=== PATIENT | female | born 1990 ===

== ENCOUNTER → 2017-10-09 | Day surgery (SDC) | payer MEDICAID ==
[~2017-10-09] MED LIST: Acetaminophen/oxyCODONE 325-5 MG Tab PO ONE; Albuterol 0.083% 2.5 MG/3 ML Neb Soln NEB ONE; Dexamethasone 4 MG/ML SDV ONE; HYDROmorphone 0.5 MG/0.5 ML Syringe IVPUSH PRN; HYDROmorphone 1 MG/ML Syringe ONE; Ketorolac 30 MG/ML SDV ONE; Lactated Ringers 1,000 ML IV SCH; Lactated Ringers 1,000 ML ONE; Lidocaine 1% 4 ML ONE; Lidocaine 1%/Sod Bicarbonate in NS 8.4% 1 ML Syringe IV PRN; Meperidine PF 50 MG/ML Syringe IVPUSH PRN; Midazolam 1 MG/ML 2 ML SDV ONE; Ondansetron 4 MG/2 ML SDV IVPUSH PRN; Ondansetron 4 MG/2 ML SDV ONE; Propofol 200 MG/20 ML SDV ONE; Rocuronium 50 MG/5 ML Vial ONE; Sodium Chloride 0.9% 10 ML Syringe FLUSH PRN; Sodium Chloride 0.9% 50 ML SDV ONE; ceFAZolin 1 GM Vial ONE; ePHEDrine 50 MG/ML SDV ONE; fentaNYL 100 MCG/2 ML SDV IVPUSH PRN; fentaNYL 250 MCG/5 ML SDV ONE
--- NOTE | 2017-10-09 09:18 | PCM.PREANE ---
Preanesthetic Assessment - Anesthesia/Transfusion/Family Hx Anesthesia History: Prior Anesthesia Without Reaction Type of Anesthesia Reaction: Other (see below) (slow to wake up) Family History of Anesthesia Reaction: No Transfusion History: Prior Transfusion Without Reaction Intubation History: Unknown - Review of Systems General: No Symptoms Pulmonary: No Symptoms (History of Asthma/ Smoker: 1 ppd times 10 years./last used inhaler 2 weeks ago.) Cardiovascular: No Symptoms Gastrointestinal: Diarrhea (for past year due to inability to adjust to water.) Neurological: Headache (Migraine headache present 05/02.), Numbness (all four extremities on occasion with patient stating she is doctoring on that next.) Other: Reports: Easy Bruising, Depression, Anxiety - Physical Assessment NPO Status Date: 10/08/17 NPO Status Time: 23:59 Pulse: 69 O2 Sat by Pulse Oximetry: 100 Respiratory Rate: 16 Blood Pressure: 110/79 Temperature: 36.1 C Height: 1.57 m Weight: 70 kg ASA Class: 2 Mental Status: Alert & Oriented x3 Airway Class: Mallampati = 2 Dentition: Reports: Dentures (upper), Broken Tooth/Teeth (fragile left bottom), Caries Thyro-Mental Finger Breadths: 3 Mouth Opening Finger Breadths: 3 ROM/Head Extension: Full Lungs: Clear to Auscultation, Normal Respiratory Effort Cardiovascular: Regular Rate, Regular Rhythm, No Murmurs - Allergies Allergies/Adverse Reactions: Allergies Allergy/AdvReac Type Severity Reaction Status Date / Time adhesive Allergy Rash Verified 10/08/17 15:20 onion Allergy Cannot Verified 10/08/17 15:20 Remember - Anesthesia Plan Pre-Op Medication Ordered: None - Acknowledgements Anesthesia Type Planned: General Anesthesia Pt an Appropriate Candidate for the Planned Anesthesia: Yes Alternatives and Risks of Anesthesia Discussed w Pt/Guardian: Yes Pt/Guardian Understands and Agrees with Anesthesia Plan: Yes PreAnesthesia Questionnaire HEENT History: Reports: Other (See Below) Other HEENT History: Wears dentures Cardiovascular History: Reports: High Cholesterol Respiratory History: Reports: Asthma Gastrointestinal History: Reports: None ROLLER CHECKER History: Reports: , Spontaneous , Other (See Below) Other OB/BYN History: abnormal uterine bleeding, HGSIL Musculoskeletal History: Reports: None Neurological History: Reports: Migraines Psychiatric History: Reports: Anxiety, Depression Endocrine/Metabolic History: Reports: None Hematologic History: Reports: Anemia Immunologic History: Reports: None Oncologic (Cancer) History: Reports: None Dermatologic History: Reports: Other (See Below) Other Dermatologic History: cold sores - Past Surgical History Head Surgeries/Procedures: Reports: None Cardiovascular Surgical History: Reports: None Respiratory Surgical History: Reports: None GI Surgical History: Reports: Cholecystectomy Female Surgical History: Reports: Oophorectomy, Tubal Ligation Endocrine Surgical History: Reports: None Neurological Surgical History: Reports: None Musculoskeletal Surgical History: Reports: None Oncologic Surgical History: Reports: None - SUBSTANCE USE Smoking Status *Q: Current Every Day Smoker Recreational Drug Use History: No - HOME MEDS Home Medications: Home Meds Acetaminophen [Tylenol] 650 g PO Q4H PRN 10/08/17 [History] Albuterol [IJD: Albuterol HFA] 2 puff INH Q4H PRN 10/08/17 [History] Cholecalciferol (Vitamin D3) [Vitamin D3] 1,000 unit PO DAILY 10/08/17 [History] Ezetimibe [Zetia] 10 mg PO DAILY 10/08/17 [History] Naproxen 500 mg PO Q6H PRN 10/08/17 [History] valACYclovir HCl [Valtrex] 500 mg PO BID 10/08/17 [History] - CURRENT (IN HOUSE) MEDS Current Meds: Current Medications Lactated Ringer's (Ringers, Lactated) 1,000 mls @ 125 mls/hr IV ASDIRECTED MELLY Stop: 10/09/17 18:00 Lidocaine/Sodium Bicarbonate (Buffered Lidocaine 1% In Ns 8.4%) 0.25 ml IV ONETIME PRN PRN Reason: Prior to IV Start Stop: 10/09/17 18:00 Sodium Chloride (Saline Flush) 10 ml FLUSH ASDIRECTED PRN PRN Reason: Keep Vein Open Stop: 10/09/17 18:00 Discontinued Medications Cefazolin Sodium (Ancef) Confirm Administered Dose 2 gm .ROUTE .STK-MED ONE Stop: 10/09/17 07:29 Dexamethasone (Dexamethasone) Confirm Administered Dose 8 mg .ROUTE .STK-MED ONE Stop: 10/09/17 07:29 Fentanyl (Sublimaze) Confirm Administered Dose 250 mcg .ROUTE .STK-MED ONE Stop: 10/09/17 07:30 Hydromorphone HCl (Dilaudid) Confirm Administered Dose 1 mg .ROUTE .STK-MED ONE Stop: 10/09/17 07:29 Lidocaine HCl (Xylocaine-Mpf 1%) Confirm Administered Dose 4 mls @ as directed .ROUTE .STK-MED ONE Stop: 10/09/17 07:29 Lactated Ringer's (Ringers, Lactated) Confirm Administered Dose 1,000 mls @ as directed .ROUTE .STK-MED ONE Stop: 10/09/17 07:29 Ketorolac Tromethamine (Toradol) Confirm Administered Dose 30 mg .ROUTE .STK- MED ONE Stop: 10/09/17 07:29 Midazolam HCl (Versed 1 Mg/Ml) Confirm Administered Dose 2 mg .ROUTE .STK-MED ONE Stop: 10/09/17 07:30 Ondansetron HCl (Zofran) Confirm Administered Dose 4 mg .ROUTE .STK-MED ONE Stop: 10/09/17 07:29 Propofol (Diprivan 20 Ml) Confirm Administered Dose 400 mg .ROUTE .STK-MED ONE Stop: 10/09/17 07:29 Rocuronium Talco (Zemuron) Confirm Administered Dose 50 mg .ROUTE .STK-MED ONE Stop: 10/09/17 07:29
--- NOTE | 2017-10-09 09:36 | PCM.HPR ---
H & P Addendum review - H & P Addendum Review Date of Original H & P: 10/02/17 Date Reviewed: 10/09/17 Time Reviewed: 09:10 Patient was Examined: Changes (Patient with uncontrollable migraines due to unable to take regular pain medications due to surgical procedure. Otherwise medical history unchanged. Denies any fevers or chills. Denies any difficulty breathing.) Please Note any Changes: Physical Exam. General: No acute distress, alert and oriented. Lungs: Mild expiratory wheezing in left lower lobe, clear in remainder of exam. Heart: Regular Rate and rhythm. Pelvic: Deferred
[2017-10-09] MEDS: Bupivacaine 0.5% 30 ML SDV ONE ×2 (11:20→11:30)
[2017-10-09] MEDS: Lidocaine 1% with EPINEPHrine 1:100,000 20 ML MDV ONE ×2 (12:00→12:12)
--- NOTE | 2017-10-09 12:57 | PCM.OPNOTE ---
- General Post-Op/Procedure Note Date of Surgery/Procedure: 10/09/17 Operative Procedure(s): Laparoscopic-assisted vaginal hysterectomy with right salpingectomy Findings: Overall normal-appearing uterus and right fallopian tube except for small surgically absent portion of the isthmus. Right ovary normal in appearance. No significant adhesions. No evidence of significant cause of pelvic pain. Left fallopian tube and ovary surgically absent. Pre Op Diagnosis: Polymenorrhea, menorrhagia, pelvic pain in female, dysmenorrhea, DIANA 3 on cervical biopsy Post-Op Diagnosis: Same Anesthesia Technique: General ET Tube Primary Surgeon: Eugenio Foley Secondary Surgeon: Clayton Delaney Anesthesia Provider: Arelis Doan Reason Short Story Writer Was Necessary: Asst. was necessary for laparoscopically trained second provider and assist with the vaginal hysterectomy for patient safety. Pathology: Uterus, cervix and right fallopian tube Fluid Replacement, Intraop: 1,800 Output, Urine Amount: 105 EBL in mLs: 200 Complications: None Condition: Good Free Text/Narrative:: Duration: 100 minutes PROCEDURE IN DETAIL: The patient was seen in the preoperative holding area and counseled on the risks, benefits and alternatives and indications of the procedure and she desired to proceed with a laparoscopic-assisted vaginal hysterectomy. The patient's consents were reviewed. The patient was taken back to the OR and given general anesthesia with an endotracheal tube which was placed without difficulty. She was placed in dorsal supine position using Yellofin stirrups. She was prepped and draped in normal sterile fashion. A Gómez catheter was placed without difficulty. She had a Abril uterine manipulator placed with a 6 mm attachment tip. Attention was then turned to her umbilicus, which was injected with 1% Marcaine with epinephrine infraumbilically. A 5 mm incision was made with the scalpel. A Veress needle was then inserted through the incision and gas was turned on, with an opening pressure of 2 mmHg. Pneumoperitoneum was continued until 15 mmHg pressure. A 5 mm trocar was then inserted under direct visualization with a laparoscope. Attention was then turned to the patient's left lower quadrant where an avascular space approximately fci between the ASIS and the umbilicus was identified. Local anesthetic was injected and a 5 mm incision was made with a scalpel. A 5 mm trocar was then inserted under direct visualization of the laparoscope. Attention was then turned to the right lower quadrant, where again an avascular portion of the abdominal wall was identified approximately fci between the ASIS and the umbilicus. Local anesthetic was injected and a scalpel was used to make a 5 mm incision. A 5 mm trocar was inserted under direct visualization with the laparoscope. Attention was then turned to the pelvis where the uterus was elevated using atraumatic graspers and noted to have a normal appearance. The left fallopian tube and ovary were surgically absent. The right tube was overall normal in appearance except for a small surgically resected portion from previous tubal ligation procedure. The right ovary was normal in appearance. The atraumatic grasper was then removed from the left lower trocar and a Harmonic electrocautery device was introduced into the left lower quadrant trocar. This was used to transect the round ligament. The broad ligament connecting the right fallopian tube was transected to the area where it had previously been surgically ligated using the Harmonic device. This tubal remnant was placed in the posterior cul-de-sac for retrieval during the vaginal portion of the surgery. The utero-ovarian ligament was then transected using the Harmonic device. The right side of the uterus and broad ligament were then transected using the Harmonic device until the level of the uterovesical peritoneal reflection. The peritoneum was then dissected using the Harmonic device and a bladder flap was started on the right side using the Harmonic device. Harmonic device was then used to transect the left round ligament. The Harmonic scalpel was then used to serially transect the broad ligament from the right side of the uterus. This was carried down to the level of the uterine arteries. The bladder flap was created using the Harmonic scalpel, which was connected with the previously formed bladder flap. The pelvis was then inspected for hemostasis at this time and hemostasis was noted. All instruments were removed from the abdomen. Attention was then turned to the patient's peritoneum where a weighted speculum was placed into the vagina and a Valentina retractor was used to visualize the cervix. The cervix was grasped with a double-tooth tenaculum. The cervical reflection point was then injected circumferentially with 0.25% lidocaine with epinephrine. The cervix was then circumferentially incised with a scalpel. The bladder was then dissected off the pubovesical cervical fascia anteriorly with Metzenbaum scissors. The same procedure was performed posteriorly and the posterior cul-de-sac was entered sharply without difficulty using Delvalle scissors. At this point, a Danny clamp was placed over the uterosacral ligaments on the patient's right side. These were transected and suture ligated with 0 Monocryl. This was repeated on the patient's right side. Hemostasis was assured. The cardinal ligaments were then clamped on both sides, transected and suture ligated with 0 Monocryl. The anterior cul-de-sac was able to be entered using blunt entry at this time. The uterine arteries and the remainder of the broad ligament were then serially clamped with Danny clamps, transected and suture ligated with 0 Monocryl on both sides. Excellent hemostasis was noted. The cervix and uterus was able to be delivered at this time. The posterior vaginal cuff was closed with running locked sutures of 0 Monocryl. The anterior vaginal cuff was closed with several figure of eight sutures of 0 Monocryl in a vertical fashion. All instruments were removed from the vagina. Attention was then turned to the abdomen where a laparoscope was inserted and a suction black oxide operator was used to check for hemostasis. There was noted to be a vessel with arterial bleeding from the anterior peritoneal edge. The Harmonic scalpel was reintroduced and used to cauterize the blood vessel. Hemostasis was noted at this time. The pelvis was then irrigated and suctioned and noted to be hemostatic. The case was complete at this time. The gas was then evacuated from the peritoneum and trocars removed. These were closed using 4-0 Monocryl suture and Dermabond. The case was completed at this time and all instruments were removed. The Gómez catheter was discontinued at this time. The patient was taken out of dorsal lithotomy position and awakened from general anesthesia. The patient was taken to the PACU in stable condition. Sponge, lap, needle and instrument counts were correct x 2. Plan is for patient to be discharged home from the postoperative recovery area. She will follow up in 2 weeks or earlier as needed for postoperative visit. Patient counseled to monitor for severe pain that is not controlled by oral medications , nausea, vomiting, fevers, chills or vaginal bleeding enough to be soaking a pad in less than an hour
--- NOTE | 2017-10-09 12:59 | PCM.POSTAN ---
POST ANESTHESIA ASSESSMENT - MENTAL STATUS Mental Status: Alert, Oriented - VITAL SIGNS Pulse Rate: 126 SaO2: 97 Resp Rate: 15 Blood Pressure: 124/69 Temperature: 36.3 C - RESPIRATORY Respiratory Status: Respiratory Rate WNL, Airway Patent, O2 Saturation Stable, Supplemental Oxygen - CARDIOVASCULAR CV Status: Pulse Rate WNL, Blood Pressure Stable - GASTROINTESTINAL GI Status: No Symptoms - PAIN Pain Score: 0 - POST OP HYDRATION Hydration Status: Adequate & Stable - OBSERVATIONS Free Text/Narrative:: no anesthetic complications noted
[2017-10-09] MEDS: Acetaminophen/oxyCODONE 325-5 MG Tab PO ONE ×2 (14:14→15:06)
== END | disposition home or self-care (01) ==
LOC: JD.SDS 08:18
PROVIDERS: ATTEND Obstetrics & Gynecology
DX: D06.9 Carcinoma in situ of cervix, unspecified (principal); N83.8 Other noninflammatory disorders of ovary, fallopian tube and broad ligament; R23.4 Changes in skin texture; Z91.09 Other allergy status, other than to drugs and biological substances; J45.909 Unspecified asthma, uncomplicated; F32.9 Major depressive disorder, single episode, unspecified; F41.9 Anxiety disorder, unspecified; E78.00 Pure hypercholesterolemia, unspecified; Z91.018 Allergy to other foods; Z79.899 Other long term (current) drug therapy; Z98.51 Tubal ligation status; F17.210 Nicotine dependence, cigarettes, uncomplicated
CPT/HCPCS: 36415; 58552; 80048; 81001; 81025; 85025; 86850; 86900; 86901; 87086; A9270; J0690; J1100; J1170; J1885; J2250; J2405; J3010; J7120; 00840; J2704